=== PATIENT | female | born 1960 | race Caucasian/White ===

== ENCOUNTER 2017-02-16 16:13 | Emergency (ER) | payer OTHER ==
[~2017-02-16 16:13] MED LIST: LISI-360 PO
[2017-02-16 16:18] VITALS: BP 133/74; PULSE 75; RESP 12; TEMP 98.1; O2SAT 100
[2017-02-16 16:41] VITALS: BP 107/60; PULSE 84; RESP 18; TEMP 98.1; O2SAT 98
--- NOTE | 2017-02-16 17:31 | PD ---
HPI Chief Complaint: Alcohol/Drug Intoxication Time Seen by Provider: 17:28 Travel History International Travel<30 days: No Contact w/Intl Traveler<30days: No Traveled to known affect area: No History of Present Illness HPI 57-year-old female was Stewart act and and brought to the ED for evaluation. Patient was found intoxicated at a local business. Patient denies any headache. Patient denies any chest pain or shortness of breath. Patient denies abdominal pain. Patient denies any dysuria or frequency. Patient denies any nausea vomiting diarrhea. Patient denies any fever chills. Patient states that last alcohol with this morning. Patient denies any illicit drug abuse. Patient denies any medical complaint now. PFSH Past Medical History Hx Anticoagulant Therapy: No Blood Disorders: No Heart Rhythm Problems: No Cancer: No Cardiovascular Problems: Yes (HTN) High Cholesterol: No Chemotherapy: No Chest Pain: No Congestive Heart Failure: No Diabetes: No Diminished Hearing: No Endocrine: No Gastrointestinal Disorders: No Genitourinary: No Hypertension: Yes Immune Disorder: No Implanted Vascular Access Dvce: No Neurologic: Yes Psychiatric: No Respiratory: No Immunizations Current: Yes Radiation Therapy: No Seizures: Yes Thyroid Disease: No ?: Not Menopausal: Yes Past Surgical History Surgical History: No Previous Surgery Hysterectomy: No Neurologic Surgery: Yes (PER EMR; PT DENIES) Other Surgery: Yes Social History Alcohol Use: Yes (DAILY) Tobacco Use: Yes (1/2PPD) Substance Use: No Allergies-Medications (Allergen,Severity, Reaction): Coded Allergies: Augmentin (Verified Allergy, Intermediate, itchy ; rash, 05/02/16) per taient Biaxin (Verified Allergy, Unknown, "gets real sick", 05/02/16) per patient Reported Meds & Prescriptions Reported Meds & Active Scripts Active Lisinopril 10 mg (Lisinopril) 10 Mg Tab 1 Tab PO DAILY 30 Days Review of Systems General / Constitutional: No: Fever Eyes: No: Visual changes HENT: No: Headaches Cardiovascular: No: Chest Pain or Discomfort Respiratory: No: Shortness of Breath Gastrointestinal: No: Abdominal Pain Genitourinary: No: Dysuria Musculoskeletal: No: Pain Skin: No Rash Neurologic: No: Weakness Psychiatric: No: Depression Endocrine: No: Polydipsia Hematologic/Lymphatic: No: Easy Bruising Physical Exam Narrative GENERAL: Well-nourished, well-developed patient. SKIN: Focused skin assessment warm/dry. HEAD: Normocephalic. EYES: No scleral icterus. No injection or drainage. NECK: Supple, trachea midline. No JVD or lymphadenopathy. CARDIOVASCULAR: Regular rate and rhythm without murmurs, gallops, or rubs. RESPIRATORY: Breath sounds equal bilaterally. No accessory muscle use. GASTROINTESTINAL: Abdomen soft, non-tender, nondistended. MUSCULOSKELETAL: No cyanosis, or edema. BACK: Nontender without obvious deformity. No CVA tenderness. Neurologic exam: Patient is awake and alert oriented 3. Patient can walk without any assistance. Patient can move all extremity well. No obvious focal neurological deficit. Data Data Last Documented VS Vital Signs Date Time Temp Pulse Resp B/P Pulse Ox O2 Delivery O2 Flow Rate FiO2 02/16/17 16:41 98.1 84 18 107/60 98 MDM Medical Decision Making Medical Screen Exam Complete: Yes Emergency Medical Condition: Yes Differential Diagnosis Differential diagnosis including alcohol intoxication. Narrative Course 57-year-old female was Stewart acted and brought in for evaluation. Patient is able to walk around the ED and went to the bathroom but has several without any problem. Patient will be discharged home and follow-up with her personal physician. Patient states that her boyfriend's coming to pick her up in front of the hospital. Diagnosis Primary Impression: Alcohol intoxication Qualified Code: F10.920 - Alcohol intoxication, uncomplicated Patient Instructions: General Instructions Additional Instructions: Advised [facility]. Follow-up as needed. Med/Other Pt SpecificInfo: No Change to Meds Disposition: 01 DISCHARGE HOME Condition: Stable Oleksandr Michelle MD Feb 16, 2017 17:31
== END 2017-02-16 17:49 | disposition home or self-care (01) ==
LOC: NEDAMB 16:13
DX: F10.129 Alcohol abuse with intoxication, unspecified (principal); I10 Essential (primary) hypertension; F17.200 Nicotine dependence, unspecified, uncomplicated; Z79.899 Other long term (current) drug therapy; Z88.1 Allergy status to other antibiotic agents; Z88.8 Allergy status to other drugs, medicaments and biological substances
CPT/HCPCS: 99283

== ENCOUNTER 2017-02-18 16:04 | Emergency (ER) | payer OTHER ==
[~2017-02-18] VITALS: Ht 162.6 cm; Wt 60.0 kg
[2017-02-18 16:04] VITALS: BP 89/57; PULSE 90; RESP 16; TEMP 97.7; O2SAT 100
[2017-02-18 18:00] VITALS: BP 116/63; PULSE 88; RESP 16; O2SAT 100
--- NOTE | 2017-02-18 21:12 | PD ---
HPI Chief Complaint: Alcohol/Drug Intoxication Time Seen by Provider: 21:12 Travel History International Travel<30 days: No Contact w/Intl Traveler<30days: No Traveled to known affect area: No History of Present Illness HPI 57-year-old female is brought to the emergency department under Rose's act for alcohol intoxication. The patient states that she was "caught" [place] the [place]. She states that she does drink alcohol daily. States she drank 1 beer today. She denies any complaints. Denies any recent falls, head injuries, headache, dizziness, nausea, vomiting, chest pain, shortness of breath, abdominal pain. She denies any drug use. No other complaints. PFSH Past Medical History Hx Anticoagulant Therapy: No Blood Disorders: No Heart Rhythm Problems: No Cancer: No Cardiovascular Problems: Yes (HTN) High Cholesterol: No Chemotherapy: No Chest Pain: No Congestive Heart Failure: No Diabetes: No Diminished Hearing: No Endocrine: No Gastrointestinal Disorders: No Genitourinary: No Hypertension: Yes Immune Disorder: No Implanted Vascular Access Dvce: No Neurologic: Yes Psychiatric: No Respiratory: No Immunizations Current: Yes Radiation Therapy: No Seizures: Yes Thyroid Disease: No Menopausal: Yes Past Surgical History Hysterectomy: No Neurologic Surgery: Yes (PER EMR; PT DENIES) Other Surgery: Yes Social History Alcohol Use: Yes (PT STATES SHE DRINKS MUCH SHE CAN PER DAY) Tobacco Use: Yes (PT STATES SHE SMOKES 1/2 PACK OF CIGARETTES PER DAY) Substance Use: Yes (ALCOHOL) Allergies-Medications (Allergen,Severity, Reaction): Coded Allergies: Augmentin (Verified Allergy, Intermediate, itchy ; rash, 05/02/16) per christine Ochoa-N 100 (Verified Allergy, Intermediate, FACIAL SWELLING , 02/18/17) Biaxin (Verified Allergy, Unknown, "gets real sick", 05/02/16) per patient Reported Meds & Prescriptions Reported Meds & Active Scripts Active Lisinopril 10 mg (Lisinopril) 10 Mg Tab 1 Tab PO DAILY 30 Days Review of Systems Except as stated in HPI: all other systems reviewed are Neg Physical Exam Narrative GENERAL: Well-nourished and well-developed female patient in no acute distress who is nontoxic appearing. SKIN: Warm and dry. HEAD: Normocephalic and atraumatic. EYES: No injection, drainage, or hyphema noted. PERRLA. EOMI. ENT: No nasal drainage noted. Oropharynx is clear. NECK: Supple and the trachea is midline. CARDIOVASCULAR: Regular rate and rhythm. RESPIRATORY: Breath sounds are equal bilaterally with no accessory muscle use, wheezing, rhonchi, or crackles. GASTROINTESTINAL: Abdomen is soft, non-tender, and nondistended. MUSCULOSKELETAL: No obvious deformities, swelling, cyanosis, or ecchymosis is present throughout the upper and lower extremities. Patient has full range of motion without any signs of neurovascular compromise. NEUROLOGICAL: Awake, alert, and oriented. Normal speech and gait. Cranial nerves are grossly intact. Data Data Last Documented VS Vital Signs Date Time Temp Pulse Resp B/P Pulse Ox O2 Delivery O2 Flow Rate FiO2 02/18/17 22:13 98 18 181/89 98 Room Air 02/18/17 16:04 97.7 Orders Complete Blood Count With Diff (02/18/17 21:11) Comprehensive Metabolic Panel (02/18/17 21:11) Alcohol (Ethanol) (02/18/17 21:11) Labs Laboratory Tests Test 02/18/17 21:15 White Blood Count 7.5 TH/MM3 Red Blood Count 3.28 MIL/MM3 Hemoglobin 10.0 GM/DL Hematocrit 29.8 % Mean Corpuscular Volume 91.0 FL Mean Corpuscular Hemoglobin 30.6 PG Mean Corpuscular Hemoglobin 33.7 % Concent Red Cell Distribution Width 15.2 % Platelet Count 190 TH/MM3 Mean Platelet Volume 6.9 FL Neutrophils (%) (Auto) 72.0 % Lymphocytes (%) (Auto) 16.5 % Monocytes (%) (Auto) 7.7 % Eosinophils (%) (Auto) 2.6 % Basophils (%) (Auto) 1.2 % Neutrophils # (Auto) 5.4 TH/MM3 Lymphocytes # (Auto) 1.2 TH/MM3 Monocytes # (Auto) 0.6 TH/MM3 Eosinophils # (Auto) 0.2 TH/MM3 Basophils # (Auto) 0.1 TH/MM3 CBC Comment DIFF FINAL Differential Comment Sodium Level 130 MEQ/L Potassium Level 3.8 MEQ/L Chloride Level 96 MEQ/L Carbon Dioxide Level 24.7 MEQ/L Anion Gap 9 MEQ/L Blood Urea Nitrogen 7 MG/DL Creatinine 0.93 MG/DL Estimat Glomerular Filtration 63 ML/MIN Rate Random Glucose 102 MG/DL Calcium Level 8.3 MG/DL Total Bilirubin 0.3 MG/DL Aspartate Amino Transf 71 U/L (AST/SGOT) Alanine Aminotransferase 36 U/L (ALT/SGPT) Alkaline Phosphatase 159 U/L Total Protein 8.3 GM/DL Albumin 3.3 GM/DL Ethyl Alcohol Level 165 MG/DL MDM Medical Decision Making Medical Screen Exam Complete: Yes Emergency Medical Condition: Yes Differential Diagnosis Alcohol intoxication versus alcohol abuse versus electrolyte abnormality Narrative Course 57-year-old female is brought to the emergency department under Rose's act for alcohol intoxication. Initially patient's blood pressure is 89/57. Repeat blood pressure is now 116/63. Otherwise vital signs are within normal limits. She has no medical complaints. We'll check blood work and have patient sleep off the alcohol. Labs are unremarkable for any acute abnormalities. Once she is found to be clinically sober she can be discharged to home. Diagnosis Primary Impression: Alcohol intoxication Qualified Code: F10.920 - Alcohol intoxication, uncomplicated Referrals: [facility] Patient Instructions: Alcohol Intoxication (ED), General Instructions Additional Instructions: Decrease your alcohol intake. Return to the emergency department for any acute worsening symptoms. Med/Other Pt SpecificInfo: No Change to Meds Disposition: 01 DISCHARGE HOME Condition: Stable Bianka Tate Feb 18, 2017 21:12
[2017-02-18 21:34] LABS: AUTOMATED NEUTROPHIL # 5.4 TH/MM3 (1.8-7.7); BASOPHIL # 0.1 TH/MM3 (0-0.2); BASOPHIL % 1.2 % (0.0-2.0); EOSINOPHIL # 0.2 TH/MM3 (0-0.4); EOSINOPHIL % 2.6 % (0.0-4.0); HEMATOCRIT 29.8 % (35.0-46.0); HEMO FLAGS DIFF FINAL; LYMPH % 16.5 % (9.0-44.0); LYMPHOCYTE # 1.2 TH/MM3 (1.0-4.8); MEAN CORPUSCULAR HEMOGLOBIN 30.6 PG (27.0-34.0); MEAN CORPUSCULAR HGB CONC 33.7 % (32.0-36.0); MONO % 7.7 % (0.0-8.0); PLATELET COUNT 190 TH/MM3 (150-450); RED BLOOD COUNT 3.28 MIL/MM3 (4.00-5.30); RED CELL DISTRIBUTION WIDTH 15.2 % (11.6-17.2); WHITE BLOOD COUNT 7.5 TH/MM3 (4.0-11.0)
[2017-02-18 21:49] LABS: ANION GAP 9 MEQ/L (5-15); AST (GOT) 71 U/L (15-37); BICARBONATE 24.7 MEQ/L (21.0-32.0); BLOOD UREA NITROGEN 7 MG/DL (7-18); CHLORIDE 96 MEQ/L (98-107); GLOMERULAR FILTRATION RATE 63 ML/MIN (>89); POTASSIUM 3.8 MEQ/L (3.5-5.1); SODIUM (NA) 130 MEQ/L (136-145)
[2017-02-18 21:50] LABS: ALT (GPT) 36 U/L (10-53)
[2017-02-18 21:52] LABS: ALKALINE PHOSPHATASE 159 U/L (45-117); TOTAL BILIRUBIN ADULT 0.3 MG/DL (0.2-1.0)
[2017-02-18 22:13] VITALS: BP 181/89; PULSE 98; RESP 18; O2SAT 98
== END 2017-02-19 01:13 | disposition home or self-care (01) ==
LOC: NEDAMB 16:04 → NEPD 02-19 01:13
DX: F10.920 Alcohol use, unspecified with intoxication, uncomplicated (principal); I10 Essential (primary) hypertension; F17.200 Nicotine dependence, unspecified, uncomplicated; Z79.899 Other long term (current) drug therapy; Z86.69 Personal history of other diseases of the nervous system and sense organs
CPT/HCPCS: 80053; 80307; 85025; 99283

== ENCOUNTER 2017-03-10 21:35 | Emergency (ER) | payer OTHER ==
[2017-03-10 21:48] VITALS: BP 150/59; PULSE 90; RESP 22; TEMP 97.6; O2SAT 97
[2017-03-10] MEDS ORDERED: UNK HTN MED (21:57)
--- NOTE | 2017-03-10 22:14 | PD ---
HPI Chief Complaint: Alcohol/Drug Intoxication Time Seen by Provider: 22:11 Travel History International Travel<30 days: No Contact w/Intl Traveler<30days: No Traveled to known affect area: No History of Present Illness HPI 57-year-old female presents to the emergency department under Stewart extra alcohol intoxication. The patient states that she had "2 beers" today. Patient smells of alcohol. Patient states he multiple times the emergency department for alcohol intoxication. Patient states she uses a wheelchair due to a previous head injury. She denies any open wounds when I talk to her. She states that she uses tobacco products, but denies any illicit drug use. Patient has no medical complaints at this time. Patient is asking for food. She states she wants to leave, but no she cannot until she demonstrated sobriety. PFSH Past Medical History Hx Anticoagulant Therapy: No Blood Disorders: No Heart Rhythm Problems: No Cancer: No Cardiovascular Problems: Yes (HTN) High Cholesterol: No Chemotherapy: No Chest Pain: No Congestive Heart Failure: No Diabetes: No Diminished Hearing: No Endocrine: No Gastrointestinal Disorders: No Genitourinary: No Hypertension: Yes Immune Disorder: No Implanted Vascular Access Dvce: No Neurologic: Yes Psychiatric: No Respiratory: No Immunizations Current: Yes Radiation Therapy: No Seizures: Yes Thyroid Disease: No Tetanus Vaccination: < 5 Years ?: Not Menopausal: Yes Past Surgical History Hysterectomy: No Neurologic Surgery: Yes (PER EMR; PT DENIES) Other Surgery: Yes Social History Alcohol Use: Yes (PT STATES SHE DRINKS MUCH SHE CAN PER DAY) Tobacco Use: Yes (PT STATES SHE SMOKES 1/2 PACK OF CIGARETTES PER DAY) Substance Use: Yes (ALCOHOL) Allergies-Medications (Allergen,Severity, Reaction): Coded Allergies: Augmentin (Verified Allergy, Intermediate, itchy ; rash, 03/10/17) per taient Darvocet-N 100 (Verified Allergy, Intermediate, FACIAL SWELLING , 03/10/17) Biaxin (Verified Allergy, Unknown, "gets real sick", 03/10/17) per patient Reported Meds & Prescriptions Reported Meds & Active Scripts Active Reported [Unk Htn Med] Review of Systems Except as stated in HPI: all other systems reviewed are Neg Physical Exam Narrative GENERAL: Disheveled female patient, afebrile. SKIN: Focused skin assessment warm/dry. HEAD: Normocephalic. Atraumatic. EYES: No scleral icterus. No injection or drainage. NECK: Supple, trachea midline. No JVD or lymphadenopathy. CARDIOVASCULAR: Regular rate and rhythm without murmurs, gallops, or rubs. RESPIRATORY: Breath sounds equal bilaterally. No accessory muscle use. Lungs sounds are clear to auscultation. GASTROINTESTINAL: Abdomen soft, non-tender, nondistended. MUSCULOSKELETAL: No cyanosis, or edema. BACK: Nontender without obvious deformity. No CVA tenderness. Data Data Last Documented VS Vital Signs Date Time Temp Pulse Resp B/P Pulse Ox O2 Delivery O2 Flow Rate FiO2 03/10/17 21:48 97.6 90 22 150/59 97 Room Air MDM Medical Decision Making Medical Screen Exam Complete: Yes Emergency Medical Condition: Yes Medical Record Reviewed: Yes Differential Diagnosis Alcohol intoxication versus alcohol abuse versus malingering Narrative Course 57-year-old female presents to the emergency department or [facility] ask for alcohol intoxication. Patient was seen in the emergency department multiple times for alcohol intoxication. She has no complaints at this time and is asking for food. Patient will be allowed to rest in the emergency department and she demonstrated sobriety. Diagnosis Primary Impression: Alcohol intoxication Qualified Code: F10.920 - Alcohol intoxication, uncomplicated Referrals: [facility] Patient Instructions: Alcohol Intoxication (ED), General Instructions Additional Instructions: Follow-up with your primary care physician. Return to the emergency department for any acute worsening of symptoms. Disposition: 01 DISCHARGE HOME Condition: Stable Lori Christianson Mar 10, 2017 22:14
[2017-03-11 03:30] VITALS: PULSE 72; RESP 16; O2SAT 96
[2017-03-11 07:33] VITALS: BP 140/70
== END 2017-03-11 07:34 | disposition home or self-care (01) ==
LOC: NEDAMB 21:35 → NEPD 03-11 07:34
DX: F10.129 Alcohol abuse with intoxication, unspecified (principal); I10 Essential (primary) hypertension; F17.210 Nicotine dependence, cigarettes, uncomplicated; Z79.899 Other long term (current) drug therapy; Z88.1 Allergy status to other antibiotic agents; Z88.5 Allergy status to narcotic agent; Z88.8 Allergy status to other drugs, medicaments and biological substances
CPT/HCPCS: 99283

== ENCOUNTER 2017-03-13 13:07 | Inpatient (IN) | payer OTHER, MEDICARE ==
[~2017-03-13] VITALS: Ht 154.9 cm; Wt 70.0 kg
[~2017-03-13 13:07] MED LIST changes: -LISI-360 PO; +UNK HTN MED
[2017-03-13] MEDS ORDERED: SODIUM CHLORIDE 0.9% FLUSH 10 ML FLUSH IVF PRN (13:15)
[2017-03-13 13:22] VITALS: PULSE 90; RESP 18; TEMP 98.1; O2SAT 98
[2017-03-13] MEDS ORDERED: SODIUM CHLOR 0.9% 1000 ML INJ 1,000 ML IV SCH (13:22)
[2017-03-13] MEDS ORDERED: LISI10TA3 PO (13:30)
[2017-03-13] MEDS ORDERED: LORazepam 2 MG/ML VIAL IV PUSH ONE (13:30)
[2017-03-13] MEDS ORDERED: SODIUM CHLORIDE 0.9% FLUSH 5 ML FLUSH IV FLUSH PRN (13:30)
--- NOTE | 2017-03-13 13:49 | PD ---
HPI Chief Complaint: Fall Time Seen by Provider: 13:30 Travel History International Travel<30 days: No Contact w/Intl Traveler<30days: No Traveled to known affect area: No History of Present Illness HPI Patient is a 57-year-old female presenting to emergency Department for evaluation of a head injury and possible syncopal episode after falling out of her wheelchair onto the sidewalk. Patient did hit her head, positive LOC, positive EtOH on board. Patient admits to drinking today, she does appear intoxicated. She is not forthcoming with the events. PFSH Past Medical History Hx Anticoagulant Therapy: No Blood Disorders: No Heart Rhythm Problems: No Cancer: No Cardiovascular Problems: Yes (HTN) High Cholesterol: No Chemotherapy: No Chest Pain: No Congestive Heart Failure: No Diabetes: No Diminished Hearing: No Endocrine: No Gastrointestinal Disorders: No Genitourinary: No Hypertension: Yes Immune Disorder: No Implanted Vascular Access Dvce: No Neurologic: Yes Psychiatric: No Respiratory: No Immunizations Current: Yes Radiation Therapy: No Seizures: Yes Thyroid Disease: No ?: Not Menopausal: Yes Past Surgical History Hysterectomy: No Neurologic Surgery: Yes (PER EMR; PT DENIES) Other Surgery: Yes Social History Alcohol Use: Yes (PT STATES SHE DRINKS MUCH SHE CAN PER DAY) Tobacco Use: Yes (PT STATES SHE SMOKES 1/2 PACK OF CIGARETTES PER DAY) Substance Use: Yes (ALCOHOL) Allergies-Medications (Allergen,Severity, Reaction): Coded Allergies: Augmentin (Verified Allergy, Intermediate, itchy ; rash, 03/10/17) per taient Darvocet-N 100 (Verified Allergy, Intermediate, FACIAL SWELLING , 03/10/17) Biaxin (Verified Allergy, Unknown, "gets real sick", 03/10/17) per patient Reported Meds & Prescriptions Reported Meds & Active Scripts Active Reported Lisinopril 10 Mg Tab 10 PO DAILY [Unk Htn Med] Review of Systems ROS Limitations: Intoxication Except as stated in HPI: all other systems reviewed are Neg Neurologic: Positive: Syncope Psychiatric: Positive: Substance Abuse Physical Exam Narrative GENERAL: Disheveled, alert, intoxicated-appearing female. SKIN: Focused skin assessment warm/dry. Abrasion to nose, right shoulder. HEAD: Normocephalic. EYES: Pupils equal and round, sluggish. No scleral icterus. No injection or drainage. ENT: No nasal bleeding or discharge. Mucous membranes pink and moist. NECK: Trachea midline. No JVD. CARDIOVASCULAR: Tachycardic. No murmur appreciated. RESPIRATORY: No accessory muscle use. Clear to auscultation. Breath sounds equal bilaterally. GASTROINTESTINAL: Abdomen soft, non-tender, nondistended. Hepatic and splenic margins not palpable. MUSCULOSKELETAL: No obvious deformities. No clubbing. No cyanosis. No edema. NEUROLOGICAL: Awake and alert. No obvious cranial nerve deficits. Motor grossly within normal limits. Normal speech. PSYCHIATRIC: Appropriate mood and affect; insight and judgment normal. Data Data Last Documented VS Vital Signs Date Time Temp Pulse Resp B/P Pulse Ox O2 Delivery O2 Flow Rate FiO2 03/13/17 13:28 89 18 98 Room Air 03/13/17 13:22 98.1 Orders Sodium Chloride 0.9% Flush (Ns Flush) (03/13/17 13:15) Complete Blood Count With Diff (03/13/17 13:22) Comprehensive Metabolic Panel (03/13/17 13:22) Creatine Kinase (Cpk) (03/13/17 13:22) Prothrombin Time / Inr (Pt) (03/13/17 13:22) Act Partial Throm Time (Ptt) (03/13/17 13:22) Ct Brain W/O Iv Contrast(Rout) (03/13/17 13:22) Blood Glucose (03/13/17 13:22) Ecg Monitoring (03/13/17 13:22) Iv Access Insert/Monitor (03/13/17 13:22) Oximetry (03/13/17 13:22) Sodium Chloride 0.9% Flush (Ns Flush) (03/13/17 13:30) Sodium Chlor 0.9% 1000 Ml Inj (Ns 1000 M (03/13/17 13:22) Alcohol (Ethanol) (03/13/17 13:22) Ct Cerv Spine W/O Contrast (03/13/17 ) Lorazepam Inj (Ativan Inj) (03/13/17 13:30) Ct Facial Bones W/O Iv Cont (03/13/17 ) Restraints Non-Violent COLLIN.Q3H (03/13/17 13:49) Chest, Single Ap (03/13/17 ) Urinalysis - C+S If Indicated (03/13/17 14:15) Cath For Specimen (03/13/17 14:15) Sodium Chlor 0.9% 1000 Ml Inj (Ns 1000 M (03/13/17 14:30) Potassium Chloride (Kcl) (03/13/17 14:30) Diet Regular Basic (03/13/17 Lunch) Urine Culture (03/13/17 14:45) Ceftriaxone Inj (Rocephin Inj) (03/13/17 15:45) Admit Order (Ed Use Only) (03/13/17 16:46) Labs Laboratory Tests Test 03/13/17 03/13/17 13:30 14:45 White Blood Count 18.2 TH/MM3 Red Blood Count 3.02 MIL/MM3 Hemoglobin 8.9 GM/DL Hematocrit 27.1 % Mean Corpuscular Volume 89.6 FL Mean Corpuscular Hemoglobin 29.3 PG Mean Corpuscular Hemoglobin 32.7 % Concent Red Cell Distribution Width 16.0 % Platelet Count 177 TH/MM3 Mean Platelet Volume 6.6 FL Neutrophils (%) (Auto) 87.3 % Lymphocytes (%) (Auto) 5.6 % Monocytes (%) (Auto) 6.5 % Eosinophils (%) (Auto) 0.3 % Basophils (%) (Auto) 0.3 % Neutrophils # (Auto) 15.9 TH/MM3 Lymphocytes # (Auto) 1.0 TH/MM3 Monocytes # (Auto) 1.2 TH/MM3 Eosinophils # (Auto) 0.1 TH/MM3 Basophils # (Auto) 0.1 TH/MM3 CBC Comment DIFF FINAL Differential Comment Prothrombin Time 11.4 SEC Prothromb Time International 1.0 RATIO Ratio Activated Partial 32.3 SEC Thromboplast Time Sodium Level 127 MEQ/L Potassium Level 3.4 MEQ/L Chloride Level 95 MEQ/L Carbon Dioxide Level 17.7 MEQ/L Anion Gap 14 MEQ/L Blood Urea Nitrogen 8 MG/DL Creatinine 0.70 MG/DL Estimat Glomerular Filtration 87 ML/MIN Rate Random Glucose 89 MG/DL Calcium Level 7.9 MG/DL Total Bilirubin 0.6 MG/DL Aspartate Amino Transf 49 U/L (AST/SGOT) Alanine Aminotransferase 27 U/L (ALT/SGPT) Alkaline Phosphatase 130 U/L Total Creatine Kinase 77 U/L Total Protein 8.3 GM/DL Albumin 3.2 GM/DL Ethyl Alcohol Level 331 MG/DL Urine Color LIGHT-YELLOW Urine Turbidity HAZY Urine pH 6.5 Urine Specific [place] 1.005 Urine Protein NEG mg/dL Urine Glucose (UA) NEG mg/dL Urine Ketones NEG mg/dL Urine Occult Blood NEG Urine Nitrite POS Urine Bilirubin NEG Urine Urobilinogen LESS THAN 2.0 MG/DL Urine Leukocyte Esterase MOD Urine RBC LESS THAN 1 /hpf Urine WBC 3 /hpf Urine Squamous Epithelial <1 /hpf Cells Urine Bacteria MANY /hpf Urine Mucus FEW /lpf Microscopic Urinalysis Comment CATH-CULTURE IND MDM Medical Decision Making Medical Screen Exam Complete: Yes Emergency Medical Condition: Yes Interpretation(s) Vital Signs Date Time Temp Pulse Resp B/P Pulse Ox O2 Delivery O2 Flow Rate FiO2 03/13/17 13:28 89 18 98 Room Air 03/13/17 13:22 98.1 90 18 [address] 03/13/17 1322 Signed Impressions: Service Date/Time: Monday, March 13, 2017 14:26 - CONCLUSION: Chronic and small vessel ischemic changes without any evidence for acute hemorrhage or mass effect. Mayte Mireles MD Maxillofacial CT 03/13/17 0000 Signed Impressions: Service Date/Time: Monday, March 13, 2017 14:26 - CONCLUSION: No definite fracture is seen for technique. Mayte Mireles MD Chest X-Ray 03/13/17 0000 Signed Impressions: Service Date/Time: Monday, March 13, 2017 15:38 - CONCLUSION: No acute cardiopulmonary disease. Mayte Mireles MD Cervical Spine CT 03/13/17 0000 Signed Impressions: Service Date/Time: Monday, March 13, 2017 14:26 - CONCLUSION: Old fracture of right occipital bone not changed since 2013 with slight neural foramina compromise right C5-C6. Mayte Mireles MD Laboratory Tests Test 03/13/17 03/13/17 13:30 14:45 White Blood Count 18.2 TH/MM3 Red Blood Count 3.02 MIL/MM3 Hemoglobin 8.9 GM/DL Hematocrit 27.1 % Mean Corpuscular Volume 89.6 FL Mean Corpuscular Hemoglobin 29.3 PG Mean Corpuscular Hemoglobin 32.7 % Concent Red Cell Distribution Width 16.0 % Platelet Count 177 TH/MM3 Mean Platelet Volume 6.6 FL Neutrophils (%) (Auto) 87.3 % Lymphocytes (%) (Auto) 5.6 % Monocytes (%) (Auto) 6.5 % Eosinophils (%) (Auto) 0.3 % Basophils (%) (Auto) 0.3 % Neutrophils # (Auto) 15.9 TH/MM3 Lymphocytes # (Auto) 1.0 TH/MM3 Monocytes # (Auto) 1.2 TH/MM3 Eosinophils # (Auto) 0.1 TH/MM3 Basophils # (Auto) 0.1 TH/MM3 CBC Comment DIFF FINAL Differential Comment Prothrombin Time 11.4 SEC Prothromb Time International 1.0 RATIO Ratio Activated Partial 32.3 SEC Thromboplast Time Sodium Level 127 MEQ/L Potassium Level 3.4 MEQ/L Chloride Level 95 MEQ/L Carbon Dioxide Level 17.7 MEQ/L Anion Gap 14 MEQ/L Blood Urea Nitrogen 8 MG/DL Creatinine 0.70 MG/DL Estimat Glomerular Filtration 87 ML/MIN Rate Random Glucose 89 MG/DL Calcium Level 7.9 MG/DL Total Bilirubin 0.6 MG/DL Aspartate Amino Transf 49 U/L (AST/SGOT) Alanine Aminotransferase 27 U/L (ALT/SGPT) Alkaline Phosphatase 130 U/L Total Creatine Kinase 77 U/L Total Protein 8.3 GM/DL Albumin 3.2 GM/DL Ethyl Alcohol Level 331 MG/DL Urine Color LIGHT-YELLOW Urine Turbidity HAZY Urine pH 6.5 Urine Specific [place] 1.005 Urine Protein NEG mg/dL Urine Glucose (UA) NEG mg/dL Urine Ketones NEG mg/dL Urine Occult Blood NEG Urine Nitrite POS Urine Bilirubin NEG Urine Urobilinogen LESS THAN 2.0 MG/DL Urine Leukocyte Esterase MOD Urine RBC LESS THAN 1 /hpf Urine WBC 3 /hpf Urine Squamous Epithelial <1 /hpf Cells Urine Bacteria MANY /hpf Urine Mucus FEW /lpf Microscopic Urinalysis Comment CATH-CULTURE IND Vital Signs Date Time Temp Pulse Resp B/P Pulse Ox O2 Delivery O2 Flow Rate FiO2 03/13/17 13:28 89 18 98 Room Air 03/13/17 13:22 98.1 90 18 98 Differential Diagnosis Hemorrhage versus fracture versus abrasion versus metabolic abnormality versus acute intoxication versus other Narrative Course Patient is a 57-year-old female presenting after being found on the ground, she fell out of her wheelchair. Positive LOC, positive EtOH, poor historian. Labs and imaging ordered and pending. Patient in 2 point restraints as she is not cooperating with cervical collar and IV. CT of the brain and facial bones show no acute abnormality, an old orbital fracture is noted. Cervical spine is unremarkable for any acute issues. Chest x-ray shows no acute disease CBC with a white count of 18.2 with left shift. Urinalysis is positive for nitrites, reflex culture pending. Patient given IM Rocephin times one dose in the emergency department Chemistry with a sodium of 127, potassium 3.4. By mouth KCl ordered. Alcohol 331 Patient is homeless, she would likely be noncompliant with an antibiotic therapy for her urinary tract infection likely worsening her condition. Discussed with Dr. Escalante, pt will be kept under observation. Orders placed. Patient continues to appear intoxicated, she is observed ambulating in the emergency department. Diagnosis Primary Impression: Syncope Qualified Code: R55 - Syncope, unspecified syncope type Additional Impressions: UTI (urinary tract infection) Qualified Code: N39.0 - Urinary tract infection without hematuria, site unspecified Alcohol intoxication Qualified Code: F10.920 - Alcohol intoxication, uncomplicated Head injury Qualified Code: S09.90XA - Head injury, initial encounter Admitting Information Admitting Physician Requests: Observation Condition: Stable Valerie Mcdaniel [facility] Mar 13, 2017 13:49
[2017-03-13 13:58] LABS: AUTOMATED NEUTROPHIL # 15.9 TH/MM3 (1.8-7.7); BASOPHIL # 0.1 TH/MM3 (0-0.2); BASOPHIL % 0.3 % (0.0-2.0); EOSINOPHIL # 0.1 TH/MM3 (0-0.4); EOSINOPHIL % 0.3 % (0.0-4.0); HEMATOCRIT 27.1 % (35.0-46.0); HEMO FLAGS DIFF FINAL; LYMPH % 5.6 % (9.0-44.0); MEAN CELL VOLUME 89.6 FL (80.0-100.0); MEAN CORPUSCULAR HEMOGLOBIN 29.3 PG (27.0-34.0); MEAN CORPUSCULAR HGB CONC 32.7 % (32.0-36.0); MONO % 6.5 % (0.0-8.0); NEUT % 87.3 % (16.0-70.0); PLATELET COUNT 177 TH/MM3 (150-450); RED BLOOD COUNT 3.02 MIL/MM3 (4.00-5.30); WHITE BLOOD COUNT 18.2 TH/MM3 (4.0-11.0)
[2017-03-13 14:08] LABS: ALT (GPT) 27 U/L (10-53); ANION GAP 14 MEQ/L (5-15); APTT (PATIENT) 32.3 SEC (24.3-30.1); AST (GOT) 49 U/L (15-37); BICARBONATE 17.7 MEQ/L (21.0-32.0); BLOOD UREA NITROGEN 8 MG/DL (7-18); CHLORIDE 95 MEQ/L (98-107); GLOMERULAR FILTRATION RATE 87 ML/MIN (>89); POTASSIUM 3.4 MEQ/L (3.5-5.1); PROTHROMBIN TIME - PATIENT 11.4 SEC (9.8-11.6); SODIUM (NA) 127 MEQ/L (136-145)
[2017-03-13 14:11] LABS: ALKALINE PHOSPHATASE 130 U/L (45-117); TOTAL BILIRUBIN ADULT 0.6 MG/DL (0.2-1.0)
[2017-03-13 14:15] LABS: CREATINE KINASE 77 U/L (26-192)
[2017-03-13] MEDS ORDERED: SODIUM CHLOR 0.9% 1000 ML INJ 1,000 ML IV ONE (14:30)
[2017-03-13] MEDS ORDERED: POTASSIUM CHLORIDE 10 MEQ CONTROLLED RELEASE TAB PO ONE (14:30)
--- NOTE | 2017-03-13 14:49 | RADRPT ---
EXAM DATE/TIME: 03/13/2017 14:26 [facility] COMPARISON: CT BRAIN W/O CONTRAST, February 05, 2014, 3:59. CT BRAIN W/O CONTRAST, January 15, 2016, 17:34. INDICATIONS : Altered mental status, fall. RADIATION DOSE: 34.19 CTDIvol (mGy) MEDICAL HISTORY : Cardiovascular disease. Hypertension. Seizures.ETOH SURGICAL HISTORY : ENCOUNTER: Initial ACUITY: 1 day PAIN SCALE: 0/10 LOCATION: cranial TECHNIQUE: Multiple contiguous axial images were obtained of the head. Using automated exposure control and adj ustment of the mA and/or kV according to patient size, radiation dose was kept as low as reasonably a chievable to obtain optimal diagnostic quality images. DICOM format image data is available electro nically for review and comparison. FINDINGS: There is no evidence for intracranial hemorrhage, mass effect, mass lesions, or edema. The visualize d bony structures appear intact. Moderate degree of brain atrophy is seen. Moderate periventricular white matter changes are seen nonspecific mostly consistent with chronic small vessel ischemic change s. There are no signs of acute infarction for technique. There is a fracture of the right occipital bone that is old and present on the older exams going back to 2013. CONCLUSION: Chronic and small vessel ischemic changes without any evidence for acute hemorrhage o r mass effect. Mayte Mireles MD on March 13, 2017 at 14:45 Board Certified Radiologist. This report was verified electronically.
--- NOTE | 2017-03-13 14:53 | RADRPT ---
EXAM DATE/TIME: 03/13/2017 14:26 [facility] COMPARISON: CT BRAIN W/O CONTRAST, February 05, 2014, 3:59. CT CERVICAL SPINE W/O CONTRAST, February 05, 2014, 3:59. INDICATIONS : Fall. RADIATION DOSE: 22.83 CTDIvol (mGy) ; Patient motion MEDICAL HISTORY : Cardiovascular disease. Hypertension. Seizures.ETOH SURGICAL HISTORY : ENCOUNTER: Initial ACUITY: 1 day PAIN SCALE: 0/10 LOCATION: neck TECHNIQUE: Volumetric scanning of the cervical spine was performed. Multiplanar reconstructions in the sagittal, coronal and oblique axial planes were performed. Using automated exposure control and adjustment o f the mA and/or kV according to patient size, radiation dose was kept as low as reasonably achievable to obtain optimal diagnostic quality images. DICOM format image data is available electronically f or review and comparison. FINDINGS: No significant subluxation or soft tissue swelling is seen. There is an old fracture of right occipit al bone identified on the older CT examination of cervical spine from 2013. C2-C3: No appreciable compromised to the thecal sac, exiting nerve roots are seen. The neural luis ewelina are patent bilaterally. No appreciable thecal sac stenosis is seen. C3-C4: No appreciable compromised to the thecal sac, exiting nerve roots are seen. The neural luis ewelina are patent bilaterally. No appreciable thecal sac stenosis is seen. C4-C5: No appreciable compromised to the thecal sac, exiting nerve roots are seen. The neural luis ewelina are patent bilaterally. No appreciable thecal sac stenosis is seen. Slight degenarative changes are seen within the disc space and facets. C5-C6: Moderate degenarative changes are seen within the disc space and facets. There is slight neura l foramina compromise on the right due to asymmetrical bulging disc and hypertrophic changes. There i s bulging disc and hypertrophic change protruding into bilateral lateral recess without any significa nt compromise to the exiting nerve roots. Slight bulging disc and hypertrophic changes are seen with indentation on the thecal sac and no significant compromise to the thecal sac. C6-C7: No appreciable compromised to the thecal sac, exiting nerve roots are seen. The neural luis ewelina are patent bilaterally. No appreciable thecal sac stenosis is seen. Slight degenarative changes are seen within the disc space and facets. C7-T1: No appreciable compromised to the thecal sac, exiting nerve roots are seen. The neural luis ewelina are patent bilaterally. No appreciable thecal sac stenosis is seen CONCLUSION: Old fracture of right occipital bone not changed since 2013 with slight neural foramina c ompromise right C5-C6. KDevan Mireles MD on March 13, 2017 at 14:47 Board Certified Radiologist. This report was verified electronically.
--- NOTE | 2017-03-13 15:27 | RADRPT ---
EXAM DATE/TIME: 03/13/2017 14:26 [facility] COMPARISON: No previous studies available for comparison. INDICATIONS : Fall.Bloody nose. RADIATION DOSE: 61.31 CTDIvol (mGy) MEDICAL HISTORY : Cardiovascular disease. Hypertension. Seizures.ETOH SURGICAL HISTORY : ENCOUNTER: Initial ACUITY: 1 day PAIN SCORE: 0/10 LOCATION: facial TECHNIQUE: Volumetric scanning of the facial bones was performed. Using automated exposure control and adjustme nt of the mA and/or kV according to patient size, radiation dose was kept as low as reasonably achiev able to obtain optimal diagnostic quality images. DICOM format image data is available electronicall y for review and comparison. FINDINGS: No definite fractures, or dislocations are identified. No definite lytic or sclerotic lesion is seen . The optic globe appears symmetric bilaterally. CONCLUSION: No definite fracture is seen for technique. Mayte Mireles MD on March 13, 2017 at 15:22 Board Certified Radiologist. This report was verified electronically.
[2017-03-13 15:28] LABS: BACTERIA, URINE MANY /hpf; BLOOD, URINE NEG (NEG); COMMENT (UR) CATH-CULTURE IND; CULTURE IF INDICATED CATH CULTURE IND; GLUCOSE,URINE NEG (NEG); KETONE, URINE NEG (NEG); MUCUS URINE FEW /lpf (OCC); NITRITE,URINE POS (NEG); PH, URINE 6.5 (5.0-8.5); SQUAMOUS EPITHELIAL CELL URINE <1 /hpf (0-5); URINE COLOR LIGHT-YELLOW (YELLW/STRAW)
--- NOTE | 2017-03-13 16:17 | RADRPT ---
EXAM DATE/TIME: 03/13/2017 15:38 [facility] COMPARISON: CHEST SINGLE AP, March 03, 2016, 10:50. INDICATIONS : Syncope MEDICAL HISTORY : None. SURGICAL HISTORY : None. ENCOUNTER: Initial ACUITY: 1 day PAIN SCORE: Non-responsive. LOCATION: chest FINDINGS: The lungs are clear without infiltrate, nodule, or mass. There is no appreciable pleural effusion fo r technique. Heart and mediastinum are unremarkable. Slight thoracic scoliosis is seen convexity tow ards the left. CONCLUSION: No acute cardiopulmonary disease. Mayte Mireles MD on March 13, 2017 at 16:15 Board Certified Radiologist. This report was verified electronically.
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
[2017-03-13] MEDS ORDERED: LORazepam 1 MG TAB PO PRN (17:45)
[2017-03-13] MEDS ORDERED: ONDANSETRON HCL 4 MG/2 ML VIAL IV PRN (17:45)
[2017-03-13] MEDS ORDERED: HALOPERIDOL LACTATE 5 MG/ML AMP IM PRN (17:45)
[2017-03-13] MEDS ORDERED: LORazepam 2 MG/ML VIAL IV PUSH PRN ×4 (17:45)
[2017-03-13] MEDS ORDERED: LORazepam 2 MG TAB PO PRN (17:45)
[2017-03-13] MEDS ORDERED: FLUMAZENIL 0.5 MG/5 ML VIAL IV PUSH PRN (17:45)
[2017-03-13] MEDS ORDERED: cloNIDine HCL 0.1 MG TAB PO PRN (17:45)
[2017-03-13] MEDS: NS + KCL 20 MEQ INJ 1,000 ML IV SCH (19:00)
[2017-03-13 19:13] VITALS: BP 123/63; PULSE 92; RESP 16; TEMP 98; O2SAT 100
[2017-03-13 19:45] VITALS: BP 127/60; PULSE 109; RESP 20; TEMP 99.8; O2SAT 98
[2017-03-13 21:08] VITALS: PULSE 120
[2017-03-13 21:51] LABS: AMPHETAMINE, URINE NEG (NEG); BARBITURATES, URINE NEG (NEG); COCAINE, URINE NEG (NEG)
[2017-03-14] VITALS (7 sets, daily range): BP systolic 129–190; BP diastolic 73–89; PULSE 93–121; RESP 18–21; TEMP 99.4–100.6; O2SAT 95–100
[2017-03-14 08:22] LABS: AUTOMATED NEUTROPHIL # 10.8 TH/MM3 (1.8-7.7); BASOPHIL % 0.3 % (0.0-2.0); EOSINOPHIL # 0.1 TH/MM3 (0-0.4); EOSINOPHIL % 0.6 % (0.0-4.0); HEMATOCRIT 26.6 % (35.0-46.0); HEMO FLAGS DIFF FINAL; LYMPHOCYTE # 0.5 TH/MM3 (1.0-4.8); MEAN CELL VOLUME 90.2 FL (80.0-100.0); MEAN CORPUSCULAR HGB CONC 33.3 % (32.0-36.0); MONO % 9.3 % (0.0-8.0); NEUT % 85.8 % (16.0-70.0); PLATELET COUNT 164 TH/MM3 (150-450); RED BLOOD COUNT 2.94 MIL/MM3 (4.00-5.30); RED CELL DISTRIBUTION WIDTH 16.6 % (11.6-17.2); WHITE BLOOD COUNT 12.6 TH/MM3 (4.0-11.0)
[2017-03-14 08:55] LABS: ALKALINE PHOSPHATASE 160 U/L (45-117); ALT (GPT) 28 U/L (10-53); ANION GAP 6 MEQ/L (5-15); AST (GOT) 71 U/L (15-37); BICARBONATE 24.6 MEQ/L (21.0-32.0); BLOOD UREA NITROGEN 10 MG/DL (7-18); CHLORIDE 103 MEQ/L (98-107); FERRITIN 72 NG/ML (8-252); GLOMERULAR FILTRATION RATE 81 ML/MIN (>89); POTASSIUM 4.3 MEQ/L (3.5-5.1); SODIUM (NA) 134 MEQ/L (136-145); TOTAL BILIRUBIN ADULT 0.7 MG/DL (0.2-1.0); TRANSFERRIN IRON PROFILE 276 MG/DL (200-360)
[2017-03-14] MEDS: NS + KCL 20 MEQ INJ 1,000 ML IV SCH ×2 (09:18→22:36)
[2017-03-14] MEDS: PANTOPRAZOLE SOD 40 MG DELAYED RELEASE TAB PO SCH (09:31)
[2017-03-14] MEDS: LISINOPRIL 10 MG TAB PO SCH (09:32)
[2017-03-14] MEDS: MULTIVITAMINS/MINERALS THERAPEUTIC TAB PO SCH (09:32)
[2017-03-14] MEDS: FOLIC ACID 1 MG TAB PO SCH (09:32)
[2017-03-14] MEDS: THIAMINE HCL 100 MG TAB PO SCH (09:32)
[2017-03-14] MEDS: REMOVE OLD PATCH T-DERMAL SCH (11:00)
--- NOTE | 2017-03-14 11:03 | HHI.PR ---
Subjective Remarks Follow-up syncope, hyponatremia and UTI. Initially wanted to sign out AMA but was convinced by her to stay. She wanted to smoke and will be started on nicotinic patch. She was refusing nursing care and medications. She insists that she did not pass out. Discussed with RN Objective Vitals Vital Signs Date Time Temp Pulse Resp B/P Pulse Ox O2 Delivery O2 Flow Rate FiO2 03/14/17 08:15 99.4 109 20 190/84 98 03/14/17 03:47 99.7 107 20 141/78 96 03/14/17 00:15 100.6 121 19 141/81 95 03/14/17 00:00 119 03/13/17 21:08 120 03/13/17 19:45 99.8 109 20 127/60 98 03/13/17 19:13 98.0 92 16 123/63 100 Room Air 03/13/17 13:28 89 18 98 Room Air 03/13/17 13:22 98.1 90 18 98 I/O 03/13/17 03/13/17 03/13/17 03/14/17 03/14/17 03/14/17 06:59 14:59 22:59 06:59 14:59 22:59 Intake Total 460 ml 480 ml Output Total 1 ml Balance 460 ml 479 ml Intake Oral 460 ml 480 ml IV Total 0 ml 0 ml Output Stool Total 1 ml Emesis 0 ml # Voids 2 3 # Bowel Movements 0 Result Diagram: 03/14/17 0700 03/14/17 0750 Imaging Last Impressions Head CT 03/13/17 1322 Signed Impressions: Service Date/Time: Monday, March 13, 2017 14:26 - CONCLUSION: Chronic and small vessel ischemic changes without any evidence for acute hemorrhage or mass effect. Mayte Mireles MD Maxillofacial CT 03/13/17 0000 Signed Impressions: Service Date/Time: Monday, March 13, 2017 14:26 - CONCLUSION: No definite fracture is seen for technique. Mayte Mireles MD Chest X-Ray 03/13/17 0000 Signed Impressions: Service Date/Time: Monday, March 13, 2017 15:38 - CONCLUSION: No acute cardiopulmonary disease. Mayte Mireles MD Cervical Spine CT 03/13/17 0000 Signed Impressions: Service Date/Time: Monday, March 13, 2017 14:26 - CONCLUSION: Old fracture of right occipital bone not changed since 2013 with slight neural foramina compromise right C5-C6. K. Taj Mireles MD Objective Remarks GENERAL: Well-developed, well-nourished disheveled patient in no distress SKIN: Warm and dry. HEAD: Atraumatic. Normocephalic. EYES: Pupils equal and round. No scleral icterus. No injection or drainage. ENT: No nasal bleeding or discharge. Mucous membranes pink and moist. Dry blood over her nose NECK: Trachea midline. No JVD. CARDIOVASCULAR: Regular rate and rhythm. RESPIRATORY: No accessory muscle use. Clear to auscultation. Breath sounds equal bilaterally. GASTROINTESTINAL: Abdomen soft, non-tender, nondistended. MUSCULOSKELETAL: Extremities without clubbing, cyanosis, or edema. No obvious deformities. No CVA tenderness NEUROLOGICAL: Awake and alert. No obvious cranial nerve deficits. Motor grossly within normal limits. Five out of 5 muscle strength in the arms and legs. Normal speech. PSYCHIATRIC: Appropriate mood and affect; insight and judgment normal. Procedures None A/P Problem List: (1) Alcohol intoxication ICD Code: F10.129 Status: Acute (2) Syncope ICD Code: R55 Status: Acute (3) Head injury ICD Code: S09.90XA Status: Acute (4) UTI (urinary tract infection) ICD Code: N39.0 Status: Acute Assessment and Plan 57-year-old homeless female with history of hypertension, alcohol abuse, tobacco abuse, presents via [facility] after being found down on the sidewalk by bystanders after she had fallen out of her wheelchair. Syncope/Loss of Consciousness with Closed Head Injury: suspect secondary to alcohol intoxication in combination with UTI. Etoh level 331 upon arrival. UA+ for UTI. -Head CT images reviewed, shows small vessel ischemic changes without acute hemorrhage/mass effect. -C-spine CT shows old fracture right occipital bone unchanged since 2013, otherwise unremarkable -Maxillofacial CT with no acute findings -Given IVF however patient removed IV and is refusing another IV placement -Consult PT -Check orthostatics -Check EKG - At this point I will hold out with further syncope workup unless she becomes hemodynamically and neurologically unstable UTI: UA +leuks and nitrites. Afebrile however +leukocytosis with WBC 18.2K. she meets criteria for sepsis with tachycardia and leukocytosis. Check lactic acid -Continue IM Rocephin qd (patient refuses IV access) -Monitor urine culture Hyponatremia: Na 127, suspect secondary to alcohol abuse and dehydration -given some IVF in the ED however now patient refusing IV access -encourage oral hydration -repeat BMP shows improved sodium of 134. We'll continue to monitor Hypokalemia: K 3.4, suspect secondary to poor oral intake with alcohol abuse -given po KCl replacement -repeat BMP K 4.2 Normocytic Anemia: no reported blood loss except recent epistaxis. Hgb 8.9, previously 10.0 in January 2017 -repeat CBC with stable blood counts -check iron studies/ferritin Alcohol Intoxication with Alcohol Abuse: Etoh level 331 upon arrival. -counseled on cessation however patient expressed no desire to quit at this time -monitor for alcohol withdrawal, seizure precautions -Continue thiamine/folate/MV -Continue CIWA protocol Hypertension. Uncontrolled secondary to noncompliance and above. Continue lisinopril and as needed clonidine. Tobacco Use: smokes 1/2 PPD -counseled on cessation -patient agrees to Nicotine patch at this time DVT Prophylaxis: teds/SCDs, avoid chemical prophylaxis with head injury/ epistaxis GI Prophylaxis: Protonix Discharge Planning Not ready for discharge Problem Qualifiers (1) Alcohol intoxication: Qualified Code: F10.920 - Alcohol intoxication, uncomplicated (2) Syncope: Qualified Code: R55 - Syncope, unspecified syncope type (3) Head injury: Qualified Code: S09.90XA - Head injury, initial encounter (4) UTI (urinary tract infection): Qualified Code: N39.0 - Urinary tract infection without hematuria, site unspecified Salomón Méndez MD Mar 14, 2017 11:03
[2017-03-14] MEDS: NICOTINE 21 MG/24 HR PATCH T-DERMAL SCH (12:36)
--- NOTE | 2017-03-14 19:30 | EKG ---
Date Performed: 03/14/2017 Time Performed: 11:04:23 PTAGE: 57 years EKG: SINUS TACHYCARDIA ABNORMAL RHYTHM ECG PREVIOUS TRACING : 02/19/2016 13.45 Since previous tracing, no significant change noted DOCTOR: rBigido Stewart Interpretating Date/Time 03/14/2017 19:30:09
[2017-03-15 03:02] VITALS: BP 138/80; PULSE 93; RESP 20; TEMP 98.3; O2SAT 98
[2017-03-15 08:20] VITALS: BP_SYST 148; BP_SYST 153; BP_DIAS 73; BP_DIAS 92; PULSE 87; RESP 18; TEMP 99; O2SAT 99
[2017-03-15] MEDS: REMOVE OLD PATCH T-DERMAL SCH (09:00)
[2017-03-15] MEDS: NICOTINE 21 MG/24 HR PATCH T-DERMAL SCH (09:00)
[2017-03-15] MEDS: MULTIVITAMINS/MINERALS THERAPEUTIC TAB PO SCH (09:46)
[2017-03-15] MEDS: LISINOPRIL 10 MG TAB PO SCH (09:46)
[2017-03-15] MEDS: FOLIC ACID 1 MG TAB PO SCH (09:46)
[2017-03-15] MEDS: THIAMINE HCL 100 MG TAB PO SCH (09:46)
[2017-03-15] MEDS: PANTOPRAZOLE SOD 40 MG DELAYED RELEASE TAB PO SCH (09:47)
--- NOTE | 2017-03-15 09:48 | HHI.PR ---
Subjective Remarks In bed with her boyfriend. Patient says she can't walk or stand. Per nurse she was not able to stand to check orthostatic BP in the morning. Patient says she wants to go home, however she is not able to walk. She denies having any n/v/d/ c. Eating well. No seizures. Tremors at times not visible at this time. She however has good strength. Feels generalized weakness. No fever or chills. No cough. Objective Vitals Vital Signs Date Time Temp Pulse Resp B/P Pulse Ox O2 Delivery O2 Flow Rate FiO2 03/15/17 08:20 99.0 87 18 153/73 99 148/92 03/15/17 03:02 98.3 93 20 138/80 98 03/14/17 20:07 99.4 104 21 148/78 100 129/73 03/14/17 16:11 99.9 104 18 158/89 99 03/14/17 12:32 100.0 93 19 156/87 98 I/O 03/14/17 03/14/17 03/14/17 03/15/17 03/15/17 03/15/17 07:00 15:00 23:00 07:00 15:00 23:00 Intake Total 480 ml Output Total 1 ml 600 ml Balance 479 ml -600 ml Intake Oral 480 ml IV Total 0 ml Output Urine Total 600 ml Stool Total 1 ml Emesis 0 ml # Voids 3 2 Result Diagram: 03/14/17 0700 03/14/17 0750 Imaging Last Impressions Head CT 03/13/17 1322 Signed Impressions: Service Date/Time: Monday, March 13, 2017 14:26 - CONCLUSION: Chronic and small vessel ischemic changes without any evidence for acute hemorrhage or mass effect. Mayte Mireles MD Maxillofacial CT 03/13/17 0000 Signed Impressions: Service Date/Time: Monday, March 13, 2017 14:26 - CONCLUSION: No definite fracture is seen for technique. Mayte Mireles MD Chest X-Ray 03/13/17 0000 Signed Impressions: Service Date/Time: Monday, March 13, 2017 15:38 - CONCLUSION: No acute cardiopulmonary disease. Mayte Mireles MD Cervical Spine CT 03/13/17 0000 Signed Impressions: Service Date/Time: Monday, March 13, 2017 14:26 - CONCLUSION: Old fracture of right occipital bone not changed since 2013 with slight neural foramina compromise right C5-C6. KDevan Mireles MD Objective Remarks GENERAL: Well-developed, well-nourished disheveled patient in no distress CARDIOVASCULAR: Regular rate and rhythm. RESPIRATORY: No accessory muscle use. Clear to auscultation. Breath sounds equal bilaterally. GASTROINTESTINAL: Abdomen soft, non-tender, nondistended. MUSCULOSKELETAL: Extremities without clubbing, cyanosis, or edema. No obvious deformities. No CVA tenderness NEUROLOGICAL: Awake and alert. No obvious cranial nerve deficits. Motor grossly within normal limits. Five out of 5 muscle strength in the arms and legs. Normal speech. PSYCHIATRIC: Appropriate mood and affect; insight and judgment normal. Procedures None A/P Problem List: (1) Alcohol intoxication ICD Code: F10.129 Status: Acute (2) Syncope ICD Code: R55 Status: Acute (3) Head injury ICD Code: S09.90XA Status: Acute (4) UTI (urinary tract infection) ICD Code: N39.0 Status: Acute Assessment and Plan 57-year-old homeless female with history of hypertension, alcohol abuse, tobacco abuse, presents via [facility] after being found down on the sidewalk by bystanders after she had fallen out of her wheelchair. Syncope/Loss of Consciousness with Closed Head Injury: suspect secondary to alcohol intoxication in combination with UTI. Etoh level 331 upon arrival. UA+ for UTI. Head CT images reviewed, shows small vessel ischemic changes without acute hemorrhage/mass effect. C-spine CT shows old fracture right occipital bone unchanged since 2013, otherwise unremarkable Maxillofacial CT with no acute findings Given IVF however patient removed IV and is refusing another IV placement Consult PT Check orthostatics Check EKG At this point I will hold out with further syncope workup unless she becomes hemodynamically and neurologically unstable UTI: UA +leuks and nitrites. Afebrile however +leukocytosis with WBC 18.2K. she meets criteria for sepsis with tachycardia and leukocytosis. Check lactic acid Continue IM Rocephin qd (patient refuses IV access) Monitor urine culture Hyponatremia: Na 127 on admission, suspect secondary to alcohol abuse and dehydration. Improving. given some IVF in the ED however now patient refusing IV access encourage oral hydration -repeat BMP shows improved sodium of 134. We'll continue to monitor Hypokalemia: K 3.4, suspect secondary to poor oral intake with alcohol abuse given po KCl replacement repeat BMP K 4.2. Monitor and replace as need. Normocytic Anemia: no reported blood loss except recent epistaxis. Hgb 8.9, previously 10.0 in January 2017 repeat CBC with stable blood counts check iron studies/ferritin Alcohol Intoxication with Alcohol Abuse: Etoh level 331 upon arrival. counseled on cessation however patient expressed no desire to quit at this time monitor for alcohol withdrawal, seizure precautions Continue thiamine/folate/MV Continue CIWA protocol Hypertension. Uncontrolled secondary to noncompliance and above. Continue lisinopril and as needed clonidine. Tobacco Use: smokes 1/2 PPD counseled on cessation patient agrees to Nicotine patch at this time Physical deconditioning. Patient is not able to walk. Per RN she was not able to stand to check orthostatics. PT to evaluate DVT Prophylaxis: teds/SCDs, avoid chemical prophylaxis with head injury/ epistaxis GI Prophylaxis: Protonix Discharge Planning Pending improvement PT to evaluate patient can't walk Problem Qualifiers (1) Alcohol intoxication: Qualified Code: F10.920 - Alcohol intoxication, uncomplicated (2) Syncope: Qualified Code: R55 - Syncope, unspecified syncope type (3) Head injury: Qualified Code: S09.90XA - Head injury, initial encounter (4) UTI (urinary tract infection): Qualified Code: N39.0 - Urinary tract infection without hematuria, site unspecified Chandni Amaya MD Mar 15, 2017 09:48
[2017-03-15 12:20] VITALS: BP 140/85; PULSE 84; RESP 18; TEMP 98.7; O2SAT 98
[2017-03-15] MEDS: NS + KCL 20 MEQ INJ 1,000 ML IV SCH (13:47)
[2017-03-15 15:25] VITALS: BP 147/70; PULSE 100; RESP 18; TEMP 99.4; O2SAT 100
[2017-03-15 20:00] VITALS: BP 138/74; PULSE 68; RESP 18; TEMP 97.7; O2SAT 98
[2017-03-16] MEDS: NS + KCL 20 MEQ INJ 1,000 ML IV SCH (04:12)
[2017-03-16] MEDS ORDERED: NICO21DI25 T-DERMAL (07:56)
[2017-03-16] MEDS ORDERED: FOLI1TAB6 PO (07:56)
[2017-03-16] MEDS ORDERED: LORA-373 PO (07:56)
[2017-03-16] MEDS ORDERED: GNP100TA3 PO (07:56)
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
[2017-03-16 08:14] VITALS: BP 148/67; PULSE 87; RESP 20; TEMP 98.9; O2SAT 98
[2017-03-16] MEDS ORDERED: CIPR250T2 PO (09:35)
== END 2017-03-16 10:45 | disposition home or self-care (01) | DRG 897 ==
LOC: NEPE 13:07 → NEDA 16:48 → NEPGCP 20:21 → OBSVTOIN 03-14 08:11
PROVIDERS: ADMIT Hospitalist; ATTEND Hospitalist
DX: F10.129 Alcohol abuse with intoxication, unspecified (principal); S09.90XA Unspecified injury of head, initial encounter; E87.1 Hypo-osmolality and hyponatremia; N39.0 Urinary tract infection, site not specified; W05.0XXA Fall from non-moving wheelchair, initial encounter; Y92.89 Other specified places as the place of occurrence of the external cause; Y90.8 Blood alcohol level of 240 mg/100 ml or more; I10 Essential (primary) hypertension; E87.6 Hypokalemia; F41.9 Anxiety disorder, unspecified; D64.9 Anemia, unspecified; F17.210 Nicotine dependence, cigarettes, uncomplicated; Z99.3 Dependence on wheelchair; Z78.1 Physical restraint status; Z59.0 Homelessness
CPT/HCPCS: 70450; 70486; 71010; 72125; 80053; 80307; 81001; 82550; 82728; 83540; 83550; 83605; 83735; 85025; 85610; 85730; 87077; 87086; 87186; 93005; 96372; 96374; G0378; G8987-GP; G8988-GP; J0696; J2060; J7030; P9612